=== PATIENT | male | born 1980 | race Caucasian/White ===

== ENCOUNTER 2021-06-18 08:00 | Outpatient (CLI) | payer OTHER | END 2021-06-18 23:59 | LOC: LAB.N 08:00 | PROVIDERS: ATTEND Nurse Practitioner | DX: R05.9 Cough, unspecified (principal); Z20.822 Contact with and (suspected) exposure to COVID-19 | CPT/HCPCS: 87275; 87276 ==

== ENCOUNTER 2025-02-17 07:09 | Observation (INO) ==
[2025-02-17 08:12] LABS: HCT - HEMATOCRIT 50.0 % (42.0-52.0); HGB - HEMOGLOBIN 17.0 g/dL (14.0-18.0); MEAN PLATELET VOLUME 10.3 fL (7.4-11.4); NRBC ABSOLUTE COUNT (AUTO) 0.00 x10^3/uL; NUCLEATED RED BLOOD CELLS AUTO 0.0 /100WBC; PLT - PLATELET COUNT 188 10^3/uL (130-450); RED CELL DISTRIBUTION WIDTH 13.4 % (12.0-15.0)
[2025-02-17] MEDS: ONDANSETRON 4 MG/2 ML VIAL IVP STA (08:15)
[2025-02-17] MEDS: HYDROmorphone 0.5 MG/0.5 ML SYRINGE IVP STA (08:15)
[2025-02-17] MEDS: KETOROLAC 15 MG/ML VIAL IVP STA (08:15)
[2025-02-17 08:22] LABS: ALT ALANINE AMINOTRANSFERASE 117 IU/L (10-60); AST ASPARTATE AMINOTRANSFERASE 140 IU/L (10-42); BUN - BLOOD UREA NITROGEN 11 mg/dL (6-20); CARBON DIOXIDE - CO2 22 mmol/L (21-32); CREATININE 1.3 mg/dL (0.6-1.3); ETOH - ETHANOL < 10.0 mg/dL; GFR - MDRD 61 (>89)
--- NOTE | 2025-02-17 08:36 | ED Physician Documentation ---
History of Present Illness Stated complaint Stated Complaint: BACK PX, SWOLLEN TONGUE Chief complaint Chief Complaint: General Additonal information Additional information: Patient is a 44-year-old male with past medical history of hypertension, hypothyroidism. Patient states that he recently got back from [place] couple months ago but has not seen a physician, and is not taking medications for these. He presents to the ER today due to 2 days of mid thoracic/lateral right flank pain. Stating that it feels more lateral than his back pain specifically. Only on the right side. States that it started insidiously without trauma, and has been getting worse over the last couple days. States that it does wax and wane. He has never had symptoms like this before. Denies any dysuria, hematuria, or painful urination. States that the pain does not radiate to his groin or the front. He states that he also woke up a few days ago with what appeared to be a bruised tongue. He states he is never had this before. He states that it was mildly painful, and there was some blood in his mouth when he woke up. He has not had no repeat episodes of bleeding. He does endorse a history of consistent alcohol use, and endorses previous episodes of withdrawal. States that he last drink 5 days ago and did not experience withdrawal symptoms as far as he knows since that time. Currently denies headache, endorses intermittent fevers and chills over the last couple days. Endorses intermittent nausea over the last couple days without vomiting. Denies chest pain or shortness of breath. Denies any anterior abdominal pain. Denies any bowel movement changes apart from chronic diarrhea that has had for several years. Review of Systems Status of ROS: See HPI Meds/Allgy Home Medications Ambulatory Orders Medication Instructions Recorded Confirmed No Known Home Medications 02/17/2502/07 Allergies Allergies Allergy/AdvReac Type Severity Reaction Status Date / Time No Known Drug Allergies Allergy Verified 02/17/25 07:39 PFSH Active Problems All Active Problems (Updated 02/17/25 @ 16:08 by Soo Leong MD) Acute kidney failure (Acute) Lower back pain (Chronic) Acute hyperactive alcohol withdrawal delirium (Acute) Alcohol withdrawal seizure (Acute) Medical History Medical History (Updated 02/17/25 @ 16:08 by Soo Leong MD) Hypothyroid Hypertension Social History Social History Smoking Status: Smoker current status unk If you are a former smoker, when did you quit? (Date/Year): 2009 Patient requests smoking cessation consult: No Initiate information on smoking cessation: No Level: Independent Do you feel safe in your home environment?: Yes History of physical, verbal, emotional, or financial abuse?: No POLST Patient has POLST: No Exam Exam Vital Signs: Vital Signs x48h Pulse Resp BP Pulse Ox 02/17/25 12:18 84 18 133/97 H 100 02/17/25 11:00 78 18 142/86 H 96 02/17/25 09:00 96 18 93 02/17/25 08:28 91 18 139/99 H 91 L Constitutional Resting in examination bed, appears uncomfortable, cannot appear to find a comfortable position, Diaphoretic. HENMT normocephalic Eyes PERRL and no scleral icterus Respiratory breath sounds equal bilaterally, normal respiratory effort, no wheezes, no rales and no use of accessory muscles Cardiovascular normal heart rate noted, regular rhythm noted, no murmur and peripheral pulses 2+ throughout Gastrointestinal Nontender to palpation in right upper quadrant, left upper quadrant, positive CVA tenderness on right side. Negative CVA tenderness on left side Back/Pelvis Nontender to palpation in his midline thoracic spine, though has lateral thoracic spine tenderness/paraspinal tenderness on right side. Extremities normal to inspection Neurology farm tractor mechanic II-XII intact and GCS 15 Psychiatry mental status grossly normal and oriented x3 Results Vitals Vitals: Vital Signs - 24 hr 02/17/25 07:36 02/17/25 08:15 02/17/25 08:15 Temperature 36.5 C Temperature Source Temporal Artery Scan Pulse Rate 116 H Respiratory Rate 20 Blood Pressure 160/125 H O2 Saturation 96 O2 Source Room air Pain Intensity 7 8 8 02/17/25 08:28 02/17/25 09:00 02/17/25 09:33 Temperature Temperature Source Pulse Rate 91 96 Respiratory Rate 18 18 Blood Pressure 139/99 H O2 Saturation 91 L 93 O2 Source Room air Room air Pain Intensity 4 02/17/25 09:33 02/17/25 11:00 02/17/25 12:18 Temperature Temperature Source Pulse Rate 78 84 Respiratory Rate 18 18 Blood Pressure 142/86 H 133/97 H O2 Saturation 96 100 O2 Source Room air Room air Pain Intensity 4 Oxygen O2 Source Room air Labs Labs: Laboratory Tests 02/17/25 08:00 WBC 10.2 RBC 5.31 Hgb 17.0 Hct 50.0 MCV 94.2 H MCH 32.0 H MCHC 34.0 RDW 13.4 Plt Count 188 MPV 10.3 Neut # (Auto) 8.1 H Lymph # (Auto) 1.4 L [place] # (Auto) 0.6 Eos # (Auto) 0.1 Baso # (Auto) 0.1 Absolute Nucleated RBC 0.00 Nucleated RBC % 0.0 Sodium 133 L Potassium 3.3 L Chloride 98 L Carbon Dioxide 22 Anion Gap 13.0 BUN 11 Creatinine 1.3 Estimated GFR (MDRD) 61 L Glucose 121 H Calcium 10.0 Total Bilirubin 1.9 H AST 140 H ALT 117 H Alkaline Phosphatase 69 Total Protein 8.5 Albumin 5.0 Globulin 3.5 Albumin/Globulin Ratio 1.4 Lipase 22 TSH 10.11 H Free T4 Direct 0.77 Ethyl Alcohol < 10.0 PD Medical Decision Making ED course ED course: Assessment: 44-year-old male presenting with back pain, flank pain, as well as a bruise/swollen tongue. Endorses significant alcohol history, and confides that he was playing 2 go to treatment through his [employer] for alcohol cessation earlier this week so he stopped drinking a few days ago. Suspect that his tongue is actually related to seizure, there are bite white underneath his tongue. Appears diaphoretic, tachycardic, hypertensive initially. Suspicious for alcohol withdrawal. DDx: Includes but is not limited to, alcohol w/drawl, alcohol drawl seizure, kidney stone, UTI, pyelonephritis, septic stone, ground-level fall, thoracic back pain, lumbar back pain, musculoskeletal back pain, electrolyte abnormality, dehydration, etc. Workup: CT shows no findings consistent with renal stone. CT of thoracic and lumbar spine show Schmorl's nodes at T10 and T11, no evidence of fracture. Severe endplate Schmorl's nodes in thoracic spine from T4-T11 without associated vertebral body fracture. Ethanol less than 10, UA negative infection, T4 0.77. T bili 1.4, AST 111, ALT 97. Na 134. Treatment: 1 L LR, IV thiamine, Zofran, Ativan 1 mg, Toradol, Dilaudid 0.5 mg. Discussion: Patient does not have an acute cause of his pain in his abdomen, his urine studies are negative, so lower concern this time for UTI, pyelo, septic stone. No evidence of hydronephrosis. He did appear to be in withdrawal in my opinion when I examined him secondary to his hypertension, tachycardia, diaphoresis, and recent cessation of significant alcohol use. After he was treated with fluids, thiamine, benzos he appeared much more comfortable and was not reporting significant pain anymore. Interestingly he does have Schmorl's nodes on his CT which may explain his back pain though this is not definite. He is high risk secondary to seizure, which is evidenced by him biting his tongue, patient had no memory of this. Instead he woke up with blood in his mouth and states that he did not know how this happened. I counseled him that I would recommend admission to the hospital for supervised withdrawal before he can go to a treatment center as an outpatient. Ultimately patient was agreeable with this. He was admitted to hospitalist medicine service here at [facility]. Discharge Plan Discharge Patient Disposition: 66 [facility] DC/Xfer Condition: Stable Clinical Impression: Alcohol withdrawal seizure Interventions: ED Admission Assessment Last Done: 02/17/25 13:31 Vitals documented within 30 minutes of discharge?: Yes
--- NOTE | 2025-02-17 09:29 | CT Report ---
PROCEDURE: CT Abdomen/Pelvis WO INDICATIONS: concern for right sided kidney stone TECHNIQUE: A CT scan of the abdomen and pelvis was performed without the use of intravenous contrast. Images were recorded and evaluated at appropriate window settings. Reformats: coronal and sagittal. For radiation dose reduction, the following was used: automated exposure control, adjustment of mA and/or kV according to patient size. COMPARISON: None. FINDINGS: Image quality: Diagnostic. Lower chest: Unremarkable. Liver: There is moderate to severe diffuse hepatic steatosis. Gallbladder: Absent Biliary tree: No intrahepatic or extrahepatic dilation, accounting for age. Spleen: No splenomegaly. Pancreas: No pancreatic ductal dilation. Adrenals: No adrenal nodule. Kidneys and ureters: No hydronephrosis. No contour-deforming mass. Stomach, bowel and peritoneum: No gastric or small bowel dilation. No abnormal wall thickening. No pathologic free fluid. Diffuse fatty infiltration of the muscle of the cecum and ascending colon and proximal three quarters of transverse colon are consistent with sequelae of previous inflammation. Lymph nodes: No central or retroperitoneal adenopathy. Vessels: No infrarenal aortic aneurysm. Reproductive organs: Unremarkable. Bladder: No abnormal bladder wall thickening. No calcified bladder stones. Pelvic lymph nodes: No adenopathy by size criteria. Bones: No aggressive osseous abnormality. Other: Small fat-containing right inguinal hernia. IMPRESSION: 1. No renal stones, ureteral stones, or hydronephrosis. 2. No acute abdominal process. 3. Moderate to severe diffuse hepatic steatosis. 4. Remote cholecystectomy. Reviewed by: Mehul Gibson MD on 02/17/2025 9:28 AM PDT Approved by: Mehul Gibson MD on 02/17/2025 9:28 AM PDT Station ID: [id number]
[2025-02-17] MEDS: THIAMINE INJ 100 MG in SODIUM CHLORIDE 0.9% 50 ML IV STA (10:16)
--- NOTE | 2025-02-17 10:51 | CT Report ---
PROCEDURE: CT Lumbar Spine WO INDICATIONS: fall, pain in upper lumbar area TECHNIQUE: Noncontrast images acquired from the T12 level to the sacrum. Sagittal and coronal reformats were constructed. For radiation dose reduction, the following was used: automated exposure control, adjustment of mA and/or kV according to patient size. COMPARISON: None. FINDINGS: Image quality: Excellent. Bones: There is normal bony alignment. No acute vertebral body compression fractures. T10 and T11 superior endplate Schmorl's node. No associated fracture. No suspicious lytic or blastic bony lesions. Central spinal caliber is of normal overall caliber. No pars defects. T12-L1: Normal in appearance. L1-L2: Normal in appearance. L2-L3: Normal in appearance. L3-L4: Mild spinal canal stenosis due to a symmetric disc bulge. No neural foraminal stenosis. L4-L5: Mild spinal canal stenosis due to a symmetric disc bulge. Mild bilateral neural foraminal stenosis. L5-S1: Mild spinal canal stenosis due to a symmetric disc bulge. No neural foraminal stenosis. Soft tissues: No retroperitoneal masses or hematomas. Visualized aorta is normal in caliber. Diffuse hepatic steatosis. IMPRESSION: 1.T10 and T11 superior endplate Schmorl's nodes. This can be a cause of axial back pain. 2.No vertebral fracture. 3.Mild spinal canal stenosis at L3-4, L4-5, and L5-S1. Reviewed by: Jerad Chowdary MD on 02/17/2025 10:50 AM PDT Approved by: Jerad Chowdary MD on 02/17/2025 10:50 AM PDT Station ID: [id number]
--- NOTE | 2025-02-17 10:55 | CT Report ---
PROCEDURE: CT Chest WO INDICATIONS: fall, lower midline thoracic pain TECHNIQUE: A CT scan of the chest was performed. Intravenous contrast media was not administered. Images were recorded and evaluated at appropriate window settings. Reformats: axial MIP of the chest, coronal and sagittal. For radiation dose reduction, the following was used: automated exposure control, adjustment of mA and/or kV according to patient size. COMPARISON: None. FINDINGS: Image quality: Diagnostic. Chest wall and lower neck: No thyroid nodule which requires sonographic follow up. No axillary or supraclavicular adenopathy by size. Lungs and pleura: No consolidation. No pleural effusions. No pneumothorax. No suspicious pulmonary nodules which require follow up. Mediastinum: Heart size is normal. No pericardial effusion. No large vessel abnormality. No mediastinal adenopathy by size criteria. Calcific locations of the left anterior descending and right proximal coronary arteries Bones: No aggressive osseous abnormality. No compression deformity. T4, T5, T6, T7, T8, T9, T10, and T11 superior endplate Schmorl's nodes. Upper Abdomen: Diffuse metastatic status. Post cholecystomy. IMPRESSION: 1.No acute intrathoracic abnormality. 2.Multilevel severe endplate Schmorl's nodes from T4 to T11 without associated vertebral body fracture. These can be associated with degenerative disc disease, a cause of back pain. Reviewed by: Jerad Chowdary MD on 02/17/2025 10:53 AM PDT Approved by: Jerad Chowdary MD on 02/17/2025 10:53 AM PDT Station ID: [id number]
--- NOTE | 2025-02-17 11:54 | HISTORY & PHYSICAL EXAMINATION ---
History of Present Illness Admitted From Admitted From:: Home History Obtained From Records Reviewed: EMR History obtained from: Patient Exam Limitations: None History of Present Illness HPI Comment/Other: Patient is a 44-year-old male with a history of chronic alcohol use who presents with a few complaints. First of all, patient is having some lower back pain. He does state that he has on and off back pain at baseline. However, this is the worst its been. He describes it as mid to low back and on the right side with no radiation anywhere. He does endorse some numbness and tingling down his right leg when his legs are raised. He denies any dysuria, urinary incontinence, stool incontinence, saddle anesthesia. In terms of his alcohol use, he usually drinks about 6 beers a day. He quit cold turkey about 6 days ago. He has gone through alcohol withdrawal in the past, so he notes that the tremors and the chills are quite normal when he does this. He has never had alcohol withdrawal seizure. Two nights ago, he woke up and his whole mouth is bloody, there is some extensive bruising around his tongue. He is currently living alone, so he is not sure if he had a seizure. Past medical history is notable for just alcohol use. Medications include just Tylenol for pain as needed. In terms of surgical history, he has had a spontaneous pneumothorax with a blebectomy, cholecystectomy. Alcohol history is as noted above. He does not smoke cigarettes, nor does he do any recreational drugs. He recently moved from [facility] to here for work. His is currently in [place], but is planning on moving here soon. In the ER, patient was vitally stableblood pressure was 160/125, heart rate was 91, respiratory rate was 20, he satting 96% in room air, and was afebrile. Lab was reviewedshe has normal white count. He had some macrocytosis noted. His creatinine was elevated at 1.9, and improved to 1.4 with fluids. UA was negative, alcohol level was negative. COVID, and flu tests were negative as well. Chest CT and lumbar spine CT showed endplate Schmorl's nodules from T4- T11 without vertebral body fracture. Abdomen/pelvis CT showed no renal stones, ureteral stones or hydronephrosis, but did show moderate to severe diffuse hepatic steatosis. He was admitted for acute alcohol withdrawal and back pain. Meds/Allgy Home Medications Ambulatory Orders Medication Instructions Recorded Confirmed No Known Home Medications 02/17/2502/07 Allergies Allergies Allergy/AdvReac Type Severity Reaction Status Date / Time No Known Drug Allergies Allergy Verified 02/17/25 07:39 PFSH Active Problems All Active Problems (Updated 02/17/25 @ 16:08 by Soo Leong MD) Acute kidney failure (Acute) Lower back pain (Chronic) Acute hyperactive alcohol withdrawal delirium (Acute) Alcohol withdrawal seizure (Acute) Medical History Medical History (Updated 02/17/25 @ 16:08 by Soo Leong MD) Hypothyroid Hypertension Social History Social History If you are a former smoker, when did you quit? (Date/Year): 2009 Patient requests smoking cessation consult: No Initiate information on smoking cessation: No Smoking Status Details: Pt uses nicotine patches daily Level: Independent Do you feel safe in your home environment?: Yes History of physical, verbal, emotional, or financial abuse?: No POLST Patient has POLST: No Review of Systems Constitutional Reports: Chills, Malaise and Weakness; Denies: Fatigue, Fever or Poor appetite Eyes Denies: Pain, Irritation, Blurry vision, Vision loss or Diplopia Ears, nose, mouth, and throat Denies: Ear pain, Hearing loss, Tinnitus, Nose bleeds, Nasal discharge, Mouth lesions or Bleeding gums Cardiovascular Denies: Irregular heart rate, chest pain, palpitations, edema, Syncope or shortness of breath with exertion Respiratory Denies: Shortness of breath, Cough, Sputum production or Wheezing Gastrointestinal Reports: Diarrhea (chronic) and Bloating; Denies: Abdominal pain, Abdominal distention, Nausea, Vomiting, Heartburn or Constipation Genitourinary Denies: Painful urination, Urinary frequency or Urinary urgency Musculoskeletal Reports: Back pain; Denies: Extremity pain, Extremity swelling or Joint pain Integumentary/Breast Denies: Rash, Itching, Dryness, Redness or Skin pain Neurological Reports: General weakness; Denies: Headache, Weakness in extremities, Numbness in extremities, Abnormal gait or Dizziness Psychiatric Denies: Depression, Anxiety, Mood swings or Panic attacks Endocrine Denies: Excessive urination, Excessive thirst or Fatigue Hematologic/Lymphatic Denies: Anemia, Easy bruising or Easy bleeding Allergic/Immunologic Denies: Hives, Tongue swelling, Facial swelling or Wheezing Prior Level of Functionality: Independent of ADLs. Exam Exam Vital Signs: Vital Signs x48h Temp Pulse Pulse Resp BP BP Pulse Ox 02/17/25 16:01 98.4 F 88 18 125/88 93 02/17/25 13:46 97.7 F 94 17 131/95 H 96 02/17/25 13:31 70 16 141/90 H 98 02/17/25 12:18 84 18 133/97 H 100 02/17/25 11:00 78 18 142/86 H 96 02/17/25 09:00 96 18 93 02/17/25 08:28 91 18 139/99 H 91 L O2 Flow Rate 02/17/25 16:01 02/17/25 13:46 0 02/17/25 13:31 02/17/25 12:18 02/17/25 11:00 02/17/25 09:00 02/17/25 08:28 Constitutional normal general appearance, no apparent distress, average body habitus and no limitations Slightly tremulous. HENMT normocephalic, head/scalp atraumatic and hearing grossly normal bilaterally Eyes PERRL, EOMs intact bilaterally and conjunctivae normal Neck/C-Spine visual inspection normal, trachea midline and cervical spine nontender Chest inspection of chest normal Respiratory breath sounds equal bilaterally, normal respiratory effort, clear to auscultation bilaterally, no wheezes, no rales and no retractions Cardiovascular normal heart rate noted, regular rhythm noted, no gallop, no rub and no murmur Gastrointestinal abdomen normal to inspection, abdomen soft to palpation, nontender to palpation and normoactive bowel sounds Genitourinary no CVA tenderness and bladder normal to palpation Back/Pelvis spine normal to inspection Some tenderness of the paraspinal muscles noted on right side, straight leg test positive on the right side Extremities normal to inspection, normal to palpation, no tenderness and full ROM Neurology no movement abnormality noted and no focal motor deficit noted Psychiatry mental status grossly normal, oriented x3, thought process normal, cooperative and affect normal Skin skin color normal, no rash, no lesions and no wounds Conclusion/Plan Problem List (1) Acute hyperactive alcohol withdrawal delirium: Plan: Patient presented in acute alcohol withdrawal. His last drink was 5 days ago. Normally drinks 6 beers per day. Has gone through withdrawals before. Last CIWA noted was between 0-7. Patient still actively tremulous, and diaphoretic. Continue Ativan as needed, orally. Patient also presented with evidence of tongue biting, and possible alcohol withdrawal seizure at home. He states that this has not happened before. Continue seizure precautions while here. (2) Lower back pain: Plan: Lumbar spine CT does show Schmorl nodules which can cause pain, and it can be a sign of early degenerative disease. Continue pain control with Tylenol, oxycodone as needed. Will also try muscle relaxer. PT also ordered, pending. Qualifiers: Back pain laterality: unspecified Chronicity: unspecified Sciatica presence: unspecified whether sciatica present Qualified Code(s): M54.50 - Low back pain, unspecified (3) Acute kidney failure: Plan: Improving with IV fluids. Continue gentle IV fluid resuscitation. Likely due to dehydration. Qualifiers: Acute renal failure type: unspecified Qualified Code(s): N17.9 - Acute kidney failure, unspecified Lab Results Lab results reviewed: Yes 02/17/25 08:00 02/17/25 13:32 Diagnostic Imaging Results Diagnostic Imaging Results: positive Final report reviewed Core Measures Anticipated LOS I expect patient to be DC'd or transferred within 96 hours.: Yes DVT/VTE - Prophylaxis VTE/DVT Device ordered at admit?: No VTE/DVT Prophylaxis med ordered at admit?: Yes
[2025-02-17] MEDS ORDERED: ONDANSETRON ODT 4 MG TABLET TL PRN (13:20)
[2025-02-17] MEDS ORDERED: SODIUM CHLORIDE FLUSH 0.9% 10 ML SYRINGE IVP PRN (13:20)
[2025-02-17] MEDS ORDERED: ONDANSETRON 4 MG/2 ML VIAL IVP PRN (13:20)
[2025-02-17] MEDS: ACETAMINOPHEN 325 MG TABLET PO PRN (13:47)
[2025-02-17] MEDS: oxyCODONE 5 MG TABLET PO PRN (13:47)
[2025-02-17 13:54] LABS: ALT ALANINE AMINOTRANSFERASE 97.0 IU/L (10-60); AST ASPARTATE AMINOTRANSFERASE 111.0 IU/L (10-42); BUN - BLOOD UREA NITROGEN 11.0 mg/dL (6-20); CARBON DIOXIDE - CO2 27.0 mmol/L (21-32); CREATININE 1.2 mg/dL (0.6-1.3); GFR - MDRD 66.0 (>89)
[2025-02-17 14:35] LABS: GLUCOSE, URINE (UA) NEGATIVE (NEGATIVE); KETONES,URINE (UA) NEGATIVE (NEGATIVE); OCCULT BLOOD,URINE NEGATIVE (NEGATIVE)
[2025-02-17] MEDS: NICOTINE 14 MG PATCH TOP SCH (15:01)
[2025-02-17] MEDS: CYCLOBENZAPRINE 10 MG TABLET PO PRN (15:02)
[2025-02-17] MEDS: LACTATED RINGERS 1,000 ML IV SCH (15:03)
--- NOTE | 2025-02-17 15:03 | PHARMACY PROGRESS NOTE ---
Best Possible Medication History Admit Date and Time: 02/17/25 [id number] Home Medications Medication Instructions Recorded Confirmed Type No Known Home Medications 02/17/2502/07 History Processed by: Nursing Medications reviewed in ED?: Yes Patient Interview: Pt interview ONLY source [facility] Statement: As the person ultimately responsible for medication therapy, providers are able to order a medication from an existing home medication list in [facility] via the "Reconcile Routine" prior to Confirmation of that medication by program support assistant. Such practice is discouraged except when the physician, in their clinical judgment, deems that a medical need exists for a medication without regard to previous use.
--- NOTE | 2025-02-17 17:08 | PT Plan of Care ---
PT Plan of Care Physical Therapy Plan of Care: Diagnosis Diagnosis Acute hyperactive alcohol withdrawal delirium Referring Provider Soo Leong Patient Status Observation Chief Complaint Chief Complaint R thoracic pain Onset of Chief Complaint FIELD [employer]CH[employer] Medical History (Updated 02/17/25 @ 16:08 by Soo Leong MD) Hypothyroid Hypertension Balance/ Functional Results Sitting Balance Good Standing Balance Fair Assessment Assessment Pt is a 44yo M referred for PT eval d/t back pain. Admitted with acute hyperactive alcohol withdrawal delirium, per chart review possible seizure at home. Pt is indep at baseline but reports increased difficulty with mobility d/t R sided back pain. Please see medical record for PMH; pt denies h/o specific back injury nor surgery. Cleared for eval by . Upon PT eval, met supine in bed A&Ox3-4 and denies pain at rest but moderate pain with all mobility and AROM in all 4 quadrants. Grossly normal strength in all 4 limbs and Bakari with ambulation in room . Gait antalgic d/t back pain and increased R sided thoracic pain with direct pressure. Pt offered QC for gait and advised not to walk indep, only with nsg assist d/t fall risk. He is agreeable. Given pain and gait impairments, pt mayl benefit from acute PT to progress functional indep. Anticipate 1-2 additional sessions needed. When medically clear, PT rec dc home with OPPT for back pain as needed. Goals Improve bed mobility to: Independent Improve supine to sit to: Independent Improve sit to stand to: Independent Improve pivot transfer ability Independent to: Improve sit to supine to: Independent Improve gait ability to: Ind Improve Standing Balance to: Good PT Plan of Care Frequency 1-2x/day Duration Until goals are met Discharge Recommendations Discharge Location Previous Living Situation Support/Services Needed Outpt. P.T. Other TBD Transport Needs at Discharge Personal vehicle
[2025-02-17] MEDS: SODIUM CHLORIDE FLUSH 0.9% 10 ML SYRINGE IVP SCH (19:56)
[2025-02-17] MEDS: HEPARIN 5,000 UNIT/ML VIAL SUBQ SCH (20:54)
[2025-02-18 07:48] LABS: HCT - HEMATOCRIT 39.6 % (42.0-52.0); HGB - HEMOGLOBIN 13.4 g/dL (14.0-18.0); MEAN PLATELET VOLUME 10.1 fL (7.4-11.4); PLT - PLATELET COUNT 145.0 10^3/uL (130-450); RED CELL DISTRIBUTION WIDTH 13.7 % (12.0-15.0)
--- NOTE | 2025-02-18 07:53 | Discharge Summary ---
"Discharge Summary Admit Date: 02/17/25 Discharge Date: 02/18/25 Discharging Provider: Dr. Soo Leong Primary Care Provider: None - new to the area Code Status: Attempt Resuscitation Discharge Facility Name: Home DIAGNOSES Admission Diagnoses: Discharge Diagnoses with Status of Each Condition: Acute alcohol withdrawalpatient presented in acute withdrawal. Last drink was 5 days ago. Normally drinks 6 beers per day, and quit cold turkey. Required only 1 dose of Ativan, and does not appear to be actively withdrawing at this time. He does have evidence of tongue biting, and may have had a withdrawal seizure at home without noticing it. He was advised to continue alcohol abstinence. He is not interested in alcohol withdrawal resources. Lower back painlumbar spine CT does show Schmorl nodules. Continue pain control with Tylenol, I have given him a short course of oxycodone for severe pain as needed, as well as Flexeril. PT was also ordered and completed, and he will require PT referral from his primary care provider for ongoing PT in the outpatient setting. Acute kidney injuryresolved with IV fluids. Likely due to dehydration. HPI History of Present Illness: Patient is a 44-year-old male with a history of chronic alcohol use who presents with a few complaints. First of all, patient is having some lower back pain. He does state that he has on and off back pain at baseline. However, this is the worst its been. He describes it as mid to low back and on the right side with no radiation anywhere. He does endorse some numbness and tingling down his right leg when his legs are raised. He denies any dysuria, urinary incontinence, stool incontinence, saddle anesthesia. In terms of his alcohol use, he usually drinks about 6 beers a day. He quit cold turkey about 6 days ago. He has gone through alcohol withdrawal in the past, so he notes that the tremors and the chills are quite normal when he does this. He has never had alcohol withdrawal seizure. Two nights ago, he woke up and his whole mouth is bloody, there is some extensive bruising around his tongue. He is currently living alone, so he is not sure if he had a seizure. Past medical history is notable for just alcohol use. Medications include just Tylenol for pain as needed. In terms of surgical history, he has had a spontaneous pneumothorax with a blebectomy, cholecystectomy. Alcohol history is as noted above. He does not smoke cigarettes, nor does he do any recreational drugs. He recently moved from [place] to here for work. His is currently in [place], but is planning on moving here soon. In the ER, patient was vitally stableblood pressure was 160/125, heart rate was 91, respiratory rate was 20, he satting 96% in room air, and was afebrile. Lab was reviewedshe has normal white count. He had some macrocytosis noted. His creatinine was elevated at 1.9, and improved to 1.4 with fluids. UA was negative, alcohol level was negative. COVID, and flu tests were negative as well. Chest CT and lumbar spine CT showed endplate Schmorl's nodules from T4- T11 without vertebral body fracture. Abdomen/pelvis CT showed no renal stones, ureteral stones or hydronephrosis, but did show moderate to severe diffuse hepatic steatosis. He was admitted for acute alcohol withdrawal and back pain. CONSULTS | PROCEDURES Consultations: PT Procedures: CT lumbar spine, CT chest, CT head HOSPITAL COURSE Hospital Course: Patient is a 44-year-old male with a history of alcohol use who presented in acute withdrawal, as well as back pain. For his acute withdrawal, he may have had a withdrawal seizure at home. He came in with tongue biting, although he does not recall the events and he lives alone so it was not witnessed. He quit cold turkey, and was previously drinking 6 beers a day. He has never had a alcohol withdrawal related seizure before. CT head was ordered, and it was negative for any acute mass or structural process. He was advised to continue abstaining from alcohol. He only required 1 dose of Ativan while here. For his lower back pain, lumbar spine CT was completed and it showed Schnorl's nodules, which may represent some early signs of degeneration. On exam, his muscle pain was localized to his right backside, and the paraspinal muscle region. PT did work with patient, and advised outpatient PT which she will need a referral for from his primary care provider. Will send him home with oxycodone for severe pain, just a few doses, as well as Flexeril for muscle relaxant. He needs close follow up with PCP in the outpatient setting. ALLERGIES Allergies Allergy/AdvReac Type Severity Reaction Status Date / Time No Known Drug Allergies Allergy Verified 02/17/25 07:39 MEDICATIONS Ambulatory Orders Medication Instructions Recorded Confirmed cyclobenzaprine 10 mg tablet 5 mg (1/2 x 10 mg) PO TID PRN 02/18/25 Spasms #30 tabs oxycodone 5 mg tablet 5 mg PO Q4HR PRN Pain 5 to 7 #12 02/18/25 tabs PHYSICAL EXAM AT DISCHARGE Vital Signs: Vital Signs x48h Temp Pulse Pulse Resp BP Pulse Ox O2 Flow Rate 02/18/25 12:00 97.9 F 85 18 133/93 H 94 0 02/18/25 08:45 98.4 F 78 18 114/74 96 Constitutional normal general appearance, no apparent distress, average body habitus and no limitations HENMT normocephalic, head/scalp atraumatic and hearing grossly normal bilaterally Eyes PERRL, EOMs intact bilaterally and conjunctivae normal Neck/C-Spine visual inspection normal, trachea midline and cervical spine nontender Chest inspection of chest normal Respiratory breath sounds equal bilaterally, normal respiratory effort, clear to auscultation bilaterally, no wheezes, no rales and no retractions Cardiovascular normal heart rate noted, regular rhythm noted, no gallop, no rub and no murmur Gastrointestinal abdomen normal to inspection, abdomen soft to palpation, nontender to palpation and normoactive bowel sounds Genitourinary no CVA tenderness and bladder normal to palpation Back/Pelvis spine normal to inspection Some tenderness of the paraspinal muscles noted on right side, straight leg test positive on the right side Extremities normal to inspection, normal to palpation, no tenderness and full ROM Neurology no movement abnormality noted and no focal motor deficit noted Psychiatry mental status grossly normal, oriented x3, thought process normal, cooperative and affect normal Skin skin color normal, no rash, no lesions and no wounds LABS 02/18/25 07:38 02/18/25 07:38 DIAGNOSTIC IMAGING Diagnostic Imaging Results: Final report reviewed FOLLOW UP Follow Up: Follow up with PCP. TIME SPENT Time Spent in Discharge (Minutes): 35 Discharge Plan Discharge Patient Disposition: Home, Self Care Condition: Stable Prescriptions: New cyclobenzaprine 10 mg Tablet 5 mg PO TID PRN (Reason: Spasms) Qty: 30 0RF oxycodone 5 mg Tablet 5 mg PO Q4HR PRN (Reason: Pain 5 to 7) Qty: 12 0RF Diet: Regular Interventions: Discharge Last Done: 02/18/25 12:24 Discharge Checklist - Nursing Last Done: 02/18/25 12:24 Discharge Vital Signs (30 Minutes) Last Done: 02/18/25 12:00 Health Concerns: Red came in because you were having chills, back pain, and you were actively going through alcohol withdrawal. First of all, it appears that you bit your tongue. You may have had a seizure without realizing it as you went through alcohol withdrawal. Normally if you have had a seizure, and this has been confirmed, we advise no driving for 3 to 6 months. However, as this seizure was likely due to alcohol withdrawal, and you are actively out of this phase, this makes you a little bit lower risk for seizures moving forward. Please exercise caution moving forward. We also got a CT scan of your head to make sure we were not missing anything, and that showed no abnormalities. For your back pain, we did get a CT of your lumbar spine, and it showed something called Schmorl's nodes, which can be contributing to your back pain. You may have also pulled a muscle in that region. I am sending you home with a few oxycodone to be taken for severe pain, as well as muscle relaxant as needed. You need to follow-up with your primary care provider, who can make you a referral to continue outpatient physical therapy. Please do not drive or operate machinery when you take these medications. I have attached a work note for you to be off until Friday. Please continue to abstain from alcohol as able. We are glad you are feeling better, thank you for letting us take care of you. Print Language: Bahamian Patient Instructions: Back Exercises: Lower Back Stretch, ED Alcohol Withdrawal Seizure Stand Alone Forms: PCP List Follow-up Care: NONE,MD MARIE [Primary Care Provider, Internal Medicine] Vitals documented within 30 minutes of discharge?: Yes"
[2025-02-18 08:05] LABS: BUN - BLOOD UREA NITROGEN 11.0 mg/dL (6-20); CARBON DIOXIDE - CO2 24.0 mmol/L (21-32); CREATININE 1.1 mg/dL (0.6-1.3); GFR - MDRD 73.0 (>89)
[2025-02-18] MEDS: PRENATAL VITAMIN TABLET PO SCH (08:09)
[2025-02-18] MEDS: THIAMINE 100 MG TABLET PO SCH (08:10)
--- NOTE | 2025-02-18 10:45 | CT Report ---
PROCEDURE: CT Head WO INDICATIONS: new seizure TECHNIQUE: CT of the head was performed, without intravenous contrast. Reformats: Coronal and sagittal. For radiation dose reduction, the following was used: automated exposure control, adjustment of mA and/or kV according to patient size. COMPARISON: None. FINDINGS: Image quality: Diagnostic. CSF spaces: Basal cisterns are patent. No extra-axial fluid collections. Ventricles are normal in size and shape. Brain: No midline shift. No intracranial mass effect or hemorrhage. Gonsales- white matter interface is normal. No significant periventricular white matter hypoattenuation or volume loss. Skull and face: Calvarium and visualized facial bones are intact, without suspicious lesions. Sinuses: Visualized sinuses and mastoids are clear. IMPRESSION: No acute intracranial pathology. Reviewed by: Mehul Gibson MD on 02/18/2025 10:43 AM PDT Approved by: Mehul Gibson MD on 02/18/2025 10:43 AM PDT Station ID: [id number]
[2025-02-18 12:24] VITALS: BP 133/93; TEMP 97.9; O2SAT 94
== END 2025-02-18 12:20 | disposition home or self-care (01) ==
LOC: ED 07:09 → MS2 07:09
PROVIDERS: ADMIT Internal Medicine; ATTEND Internal Medicine
DX: M51.44 Schmorl's nodes, thoracic region; R10.9 Unspecified abdominal pain; N17.9 Acute kidney failure, unspecified; W19.XXXA Unspecified fall, initial encounter; M54.50 Low back pain, unspecified; K52.9 Noninfective gastroenteritis and colitis, unspecified; Z87.891 Personal history of nicotine dependence; F10.231 Alcohol dependence with withdrawal delirium; E03.9 Hypothyroidism, unspecified; I10 Essential (primary) hypertension